=== PATIENT | female | born 1970 | race Caucasian/White ===

== ENCOUNTER 2023-04-09 11:52 | Emergency (ER) | payer OTHER ==
[2023-04-09] MEDS ORDERED: hydrOXYzine 25 MG TAB ONE (12:38)
== END 2023-04-09 13:40 | disposition home or self-care (01) ==
LOC: MADERS 11:52
DX: F41.1 Generalized anxiety disorder (principal); F10.239 Alcohol dependence with withdrawal, unspecified; F10.229 Alcohol dependence with intoxication, unspecified; I10 Essential (primary) hypertension; Z87.891 Personal history of nicotine dependence; Z79.899 Other long term (current) drug therapy; Y90.9 Presence of alcohol in blood, level not specified
CPT/HCPCS: 93005